=== PATIENT | male | born 1995 | race Caucasian/White ===

== ENCOUNTER 2016-05-23 01:02 | Emergency (ER) | payer MEDICAID ==
[~2016-05-23] VITALS: Ht 172.7 cm; Wt 93.9 kg
[2016-05-23 01:28] VITALS: BP 149/86
[2016-05-23] MEDS ORDERED: AZITHROMYCIN 250 MG TAB PO ONE (03:15)
[2016-05-23] MEDS ORDERED: cefTRIAXone SODIUM 250 MG VL IM ONE (03:15)
[2016-05-23 03:41] LABS: Urine Bilirubin Negative (Negative); Urine Blood Negative /uL (Negative); Urine Color Yellow (Yellow); Urine Glucose Normal (Normal); Urine Ketone Negative (Negative); Urine Nitrite Negative (Negative); Urine RBC 2 /hpf (0 - 3); Urine Squamous Epithelial Cell FEW /hpf (<5); Urine Urobilinogen Normal (Negative)
== END 2016-05-23 03:20 | disposition home or self-care (01) ==
LOC: ER 01:08
DX: N39.0 Urinary tract infection, site not specified (principal); Z20.2 Contact with and (suspected) exposure to infections with a predominantly sexual mode of transmission; F17.210 Nicotine dependence, cigarettes, uncomplicated
CPT/HCPCS: 81001; 87491; 87591; 96372; 99284; J0696